=== PATIENT | male | born 1945 | race Caucasian/White ===

== ENCOUNTER 2017-06-13 14:26 | Inpatient (IN) ==
--- NOTE | 2017-06-13 15:07 | Emergency Department Note ---
Disposition Clinical Impression: Bladder outlet obstruction, Bilateral hydronephrosis Acute renal failure Qualifiers: Acute renal failure type: unspecified Qualified Code(s): N17.9 - Acute kidney failure, unspecified Disposition: Admitted As Inpatient Condition: Fair Time of Disposition: 15:23 Male Urogenital HPI - General Chief complaint: ED Urogenital-Male Stated complaint: trouble urinating Time Seen by Provider: 06/13/17 14:50 Source: patient, EMS Limitations: no limitations Nursing Notes Reviewed: Yes Vital Signs Reviewed: Yes - History of Present Illness HPI Narrative: Patient is a 71-year-old male who presents to [facility] ED with a chief complaint of urinary obstruction. [facility]one[facility] and bladder outlet obstruction causing renal failure. Patient has known elevated PSA of 22 and has a scheduled urology appointment on June 18. Patient sent over to be admitted for his renal failure and urology consultation. Patient also accidentally got his Perez catheter stuck on the doorknob and it pulled out Perez causing traumatic damage to the urethra. He has had bloody output and now has decreased urinary output. Pt Subjective Complaint: urinary retention Onset (ago): week(s) Duration: gradually worsening Severity: moderate Improves with: none Worsens with: none Reports: urinary retention, incontinence - Related Data Home Medications Medication Instructions Recorded Confirmed Acetaminophen [Tylenol] 500 mg PO Q6H PRN 06/13/17 06/13/17 Ciprofloxacin [Cipro] 500 mg PO BID 06/13/17 06/13/17 Divalproex (24 HR) [Depakote ER 500 mg PO HS 06/13/17 06/13/17 (24 HR)] Finasteride [Proscar] 5 mg PO DAILY 06/13/17 06/13/17 Metoprolol XL (24 HR) Succ [Toprol 25 mg PO DAILY 06/13/17 06/13/17 XL] Naproxen [Naprosyn] 500 mg PO BID 06/13/17 06/13/17 Ranitidine HCl [Acid Alliance Manager] 150 mg PO BID 06/13/17 06/13/17 Simvastatin [Zocor] 20 mg PO HS 06/13/17 06/13/17 Tamsulosin [Flomax] 0.4 mg PO DAILY 06/13/17 06/13/17 Venlafaxine XR (24 HR) [Effexor XR] 150 mg PO DAILY 06/13/17 06/13/17 Zolpidem [Ambien] 5 mg PO HS PRN 06/13/17 06/13/17 Allergies Allergy/AdvReac Type Severity Reaction Status Date / Time No Known Allergies Allergy Verified 06/13/17 14:34 All systems ED: reviewed and negative except as stated. Past Medical History - Past Medical History Attestation: Yes The following information was validated with the patient. Source: patient Medical history: Reports: COPD, coronary artery disease, GERD, hyperlipidemia, hypertension, other Psychiatric history: Reports: depression - Social History Smoking Status: Never smoker Drug use: Reports: none Physical Exam - General Limitations: no limitations General appearance: alert, in no apparent distress - Head Head exam: normal inspection - Eye Eye exam: Present: normal appearance - ENT ENT exam: normal exam, normal oropharynx, mucous membranes moist, normal external ear exam - Neck Neck exam: Present: normal inspection, full ROM, trachea midline - Chest Chest inspection: Present: normal inspection, symmetric chest wall rise - Respiratory Respiratory exam: Present: normal lung sounds bilaterally - Cardiovascular Cardiovascular exam: Present: regular rate, normal rhythm, normal heart sounds - Abdominal Exam Abdominal Exam: Present: soft, Non-Tender - Male exam: Present: normal inspection - Extremities Exam Extremities exam: Present: normal inspection, full ROM - Neurological Exam Neurological exam: Present: alert - Psychiatric Psychiatric exam: Present: normal affect, normal mood - Skin Skin exam: Present: warm, dry, intact, normal color Course Course Narrative: Patient seen and examined. Urinary retention with possibility of prostate cancer. Has not seen urology. Sent in for renal failure with a creatinine of 2.5 and bilateral severe hydronephrosis. Patient came with a Perez in place which had bloody urine with clotting. Perez was flushed with saline but did not get adequate urine output return. It appears that there are clots stuck in the Perez catheter. We will remove this and place a new one. If we have any trouble getting medicine, we will go ahead and call urology. Lab work and imaging was reviewed [facility] We will hold off on repeating any lab work at this time. - Reevaluation(s) Reevaluation #1: I spoke with urologist Dr. Garvin who will consult on the patient. I spoke with hospitalist Dr. Umanzor who has accepted patient for admission. Time: 15:23 Vital Signs Temperature 98.1 F 06/13/17 14:30 Pulse Rate 57 06/13/17 14:30 Respiratory Rate 18 06/13/17 14:30 Blood Pressure 172/82 06/13/17 14:30 O2 Sat by Pulse Oximetry 100 06/13/17 14:30 Temperature 98.1 F 06/13/17 14:30 Pulse Rate 57 06/13/17 14:30 Respiratory Rate 18 06/13/17 14:30 Blood Pressure 172/82 06/13/17 14:30 O2 Sat by Pulse Oximetry 100 06/13/17 14:30 Oxygen Delivery Oxygen Delivery Room Air Urogenital-Male - Medical Records Medical records reviewed: Yes I reviewed the patient's medical records. - Lab Data Lab results reviewed: Yes I reviewed the patient's lab results. - Radiology Data Radiology results reviewed: Yes I reviewed the patient's radiology results.
--- NOTE | 2017-06-13 16:04 | Emergency Department Note ---
Disposition Clinical Impression: Bladder outlet obstruction, Bilateral hydronephrosis Acute renal failure Qualifiers: Acute renal failure type: unspecified Qualified Code(s): N17.9 - Acute kidney failure, unspecified Disposition: Admitted As Inpatient Condition: Fair General Adult HPI - General Chief complaint: ED Urogenital-Male Stated complaint: trouble urinating Time Seen by Provider: 06/13/17 14:50 Source: patient, EMS Limitations: no limitations - History of Present Illness Pain Scale: 0 - Related Data Home Medications Medication Instructions Recorded Confirmed Acetaminophen [Tylenol] 500 mg PO Q6H PRN 06/13/17 06/13/17 Ciprofloxacin [Cipro] 500 mg PO BID 06/13/17 06/13/17 Divalproex (24 HR) [Depakote ER 500 mg PO HS 06/13/17 06/13/17 (24 HR)] Finasteride [Proscar] 5 mg PO DAILY 06/13/17 06/13/17 Metoprolol XL (24 HR) Succ [Toprol 25 mg PO DAILY 06/13/17 06/13/17 XL] Naproxen [Naprosyn] 500 mg PO BID 06/13/17 06/13/17 Ranitidine HCl [Acid Sludge Filtration Operator] 150 mg PO BID 06/13/17 06/13/17 Simvastatin [Zocor] 20 mg PO HS 06/13/17 06/13/17 Tamsulosin [Flomax] 0.4 mg PO DAILY 06/13/17 06/13/17 Venlafaxine XR (24 HR) [Effexor XR] 150 mg PO DAILY 06/13/17 06/13/17 Zolpidem [Ambien] 5 mg PO HS PRN 06/13/17 06/13/17 Allergies Allergy/AdvReac Type Severity Reaction Status Date / Time No Known Allergies Allergy Verified 06/13/17 14:34 Past Medical History - Past Medical History Medical history: Reports: COPD, coronary artery disease, GERD, hyperlipidemia, hypertension, other Psychiatric history: Reports: depression - Social History Smoking Status: Never smoker Drug use: Reports: none Physical Exam - General Limitations: no limitations General appearance: alert, in no apparent distress Course - Reevaluation(s) Reevaluation #1: I saw the patient with the resident, Dr. mccauley. Patient presented from outside facility after abnormal lab work showed low hemoglobin and elevated renal functions. Patient is having issues with prostate and he has a chronic indwelling Perez that seems to be on pulled out and now is having blood in the urine. We had to replace the Perez with a 3-way catheter and irrigate. We did get clots out. Patient needs to be admitted because of the renal insufficiency that is significant change from previous. He will be admitted to the hospitalist with urology consultation. At this time he is in no distress with normal vital signs and an unremarkable exam except for the presence of the Perez in place with red urine. Time: 16:04 Vital Signs Temperature 98.1 F 06/13/17 14:30 Pulse Rate 57 06/13/17 14:30 Respiratory Rate 18 06/13/17 14:30 Blood Pressure 172/82 06/13/17 14:30 O2 Sat by Pulse Oximetry 100 06/13/17 14:30 Temperature 99.6 F 06/13/17 18:35 Pulse Rate 82 06/13/17 18:35 Respiratory Rate 18 06/13/17 18:35 Blood Pressure 179/88 06/13/17 18:35 O2 Sat by Pulse Oximetry 96 06/13/17 18:35 Oxygen Delivery Oxygen Delivery Room Air Attestation Statement - Attestation Attestation: I, Dr. Rowe, examined this patient [id number] and my medical decision- making was reviewed with the Resident Physician, Dr. mccauley. I agree with the documented findings, disposition and treatment plan as described except to the extent set forth below. Please see my progress note for details.
[2017-06-13] MEDS ORDERED: Naloxone 0.4 MG/ML INJ IVP PRN (17:08)
[2017-06-13] MEDS ORDERED: Acetaminophen 325 MG TABLET PO PRN (17:08)
--- NOTE | 2017-06-13 17:18 | Internal Med History&Physical ---
Date of Encounter: 06/13/17 Time of Encounter: 16:30 Assessment and Plan (1) UTI (urinary tract infection) Current visit: Yes Status: Acute Patient has UTI before admission. On Cipro po at home. Will continue Cipro by mouth and repeat UA and urine culture. Qualifiers: Urinary tract infection type: acute cystitis Hematuria presence: without hematuria Qualified Code(s): N30.00 - Acute cystitis without hematuria (2) BPH (benign prostatic hyperplasia) Current visit: Yes Status: Acute Patient has signs of urinary retention. Keep patient on Perez catheter. Urology consult. Keep home medications for BPH. Qualifiers: Lower urinary tract symptom presence: symptoms present Lower urinary tract symptom detail: urinary obstruction Qualified Code(s): N40.1 - Benign prostatic hyperplasia with lower urinary tract symptoms; N13.8 - Other obstructive and reflux uropathy (3) Depression Current visit: Yes Status: Acute Continue home medications. Patient is stable. Qualifiers: Depression Type: other depression Qualified Code(s): F32.89 - Other specified depressive episodes (4) DVT prophylaxis Current visit: Yes Status: Acute EPCD. Hold anticoagulations because of hematuria (5) Acute renal failure Current visit: Yes Status: Acute Creatinine 2.47. No previous creatinine level available. Possibly due to BPH caused urination obstruction. On Perez catheter already. Will go patient mild hydration, monitor renal function. Qualifiers: Acute renal failure type: unspecified Qualified Code(s): N17.9 - Acute kidney failure, unspecified (6) Bladder outlet obstruction Current visit: Yes Status: Acute Perez catheter placed. Urology consult (7) Bilateral hydronephrosis Current visit: Yes Status: Acute Most likely due to urinary obstruction caused by BPH . Continue Perez catheter. Urology consult. Internal Medicine - H&P: HPI Chief complaint: Cannot urinate Admitted From: Home Plans for Post Hospital Care: Home History of present illness: Mr. Queen is a 71 year old male with history of UTI, BPH, hypertension, depression sent from [place] for urinary retention/obstruction with ARIE. Patient has history of BPH, was on Perez catheter. However, his Perez catheter came out 10 days ago. Patient said he can urinate but stream is slow. Today he went to [facility] for examination. US shows urinary retention and hydronephrosis. Patient was sent to our ER to see a specialist. Urology was consulted by ER physician. A new Perez catheter has been placed. Patient has mild hematuria after the Perez catheter. Patient denies fever, chest pain, shortness of breath , nausea. I have discussed with patient regarding CODE STATUS, he is full code. Past Med Surg Social Fam HX - Past Medical History Medical history: COPD, coronary artery disease, GERD, hyperlipidemia, hypertension, other Psychiatric history: depression - Social History Smoking Status: Never smoker Drug use: none Internal Medicine - H&P: Meds Acetaminophen [Tylenol] 500 mg PO Q6H PRN 06/13/17 [History] Ciprofloxacin [Cipro] 500 mg PO BID 06/13/17 [History] Divalproex (24 HR) [Depakote ER (24 HR)] 500 mg PO HS 06/13/17 [History] Finasteride [Proscar] 5 mg PO DAILY 06/13/17 [History] Metoprolol XL (24 HR) Succ [Toprol XL] 25 mg PO DAILY 06/13/17 [History] Naproxen [Naprosyn] 500 mg PO BID 06/13/17 [History] Ranitidine HCl [Acid Installation And Repair Technician] 150 mg PO BID 06/13/17 [History] Simvastatin [Zocor] 20 mg PO HS 06/13/17 [History] Tamsulosin [Flomax] 0.4 mg PO DAILY 06/13/17 [History] Venlafaxine XR (24 HR) [Effexor XR] 150 mg PO DAILY 06/13/17 [History] Zolpidem [Ambien] 5 mg PO HS PRN 06/13/17 [History] 3 Allergy/AdvReac Type Severity Reaction Status Date / Time No Known Allergies Allergy Verified 06/13/17 14:34 All Systems PM: A 10-system review of systems was performed and is negative for pertinent findings except as documented above in the HPI. - Constitutional Vitals: Temp Pulse Resp BP Pulse Ox 98.1 F 55 18 133/100 100 06/13/17 14:30 06/13/17 16:29 06/13/17 16:48 06/13/17 16:48 06/13/17 16:29 General appearance: Present: A&O X 3, no acute distress, answers questions appropriately - Head Head exam: Present: atraumatic, normocephalic - Eye Eye exam: Present: PERRL, conjuntiva pink, sclera anicteric Pupils: Present: PERRL - Neck Neck exam general surgery: Present: supple, trachea midline. Absent: lymphadenopathy - Respiratory Respiratory exam: Present: CTAB. Absent: accessory muscle use, rales, rhonchi, wheezes - Cardiovascular Cardiovascular exam: Present: RRR, +S1, +S2. Absent: diastolic murmur, gallop, rubs, systolic murmur - GI/Abdominal GI/Abdominal exam: Present: normal bowel sounds, soft, no peritoneal signs. Absent: distended, tenderness Additional comments: Perez catheter in place, with pink color urine (mild hematuria). - Extremities Exam Extremities exam: Present: warm, radial pulses palpable and symmetrical. Absent : calf tenderness, cyanotic, pedal edema - Neurological Exam Neurological exam: Present: CN II-XII intact, oriented X3, no focal deficits. Absent: pronater drift, facial droop, speech deficit - Skin Skin exam: Present: dry, intact Internal Med - H&P Results - Labs Labs: Lab from reviewed: CBC: 5.5/10.8/32.9/130 BMP: 140/5.4/109/31/2.47/91
[2017-06-13 17:35] LABS: Bilirubin,Urine Negative (Negative); Blood,Urine Large (Negative); Clarity,Urine Cloudy (Clear); Color,Urine Red (Yellow); Glucose,Urine (UA) 100 mg/dL (Normal); Ketones,Urine Negative (Negative); Leukocyte Esterase,Urine Small (Negative); Nitrite,Urine Negative (Negative); Protein,Urine >=1000 mg/dL (Neg-Trace); Specific Gravity,Urine 1.022 (1.010-1.025); Urobilinogen,Urine Normal (Normal)
[2017-06-13] MEDS: 0.9 % Sodium Chloride 1,000 ML IVC SCH (18:05)
--- NOTE | 2017-06-13 18:15 | Urology - Consult Note ---
Date of Encounter: 06/13/17 Time of Encounter: 18:13 - Assessment and Plan (1) Hematuria Current Visit: Yes Status: Acute Assessment and plan: 71-year-old man with hematuria after catheter placement. He has a 3-way catheter in place currently. We will continue him on continuous bladder irrigation. His urine did clear on irrigation. No surgical intervention is necessary at this time. I was able to hand irrigate significant amount of clot out of his bladder he was in the emergency department. We will continue to follow along. Qualifiers: Qualified Code(s): R31.0 - Gross hematuria (2) Bladder outlet obstruction Current Visit: Yes Status: Acute Assessment and plan: He has a history of urinary retention and bilateral hydronephrosis. He has an indwelling catheter in place. He has been admitted to the hospital service for close follow-up on his renal function. We will continue his catheter through his hospital stay and upon discharge. We will check labs in the morning. Continue IV fluids. Urology CN:[facility] Consult date: 06/13/17 Reason for consult Urology: Other (hematuria) History of present illness: 71-year-old man was admitted for urinary retention and hematuria. He is a patient of [facility] and developed bilateral hydronephrosis and urinary retention seen on CT scan. He hit a catheter placed. He accidentally dislodged it. The catheter was replaced at the PA but seems like it was replaced somewhat forcefully per his report. He began having hematuria. He was transferred to the [facility]. When I saw him in the emergency department he had a 24 Bengali three-way catheter. His urine was grossly bloody with some clots in the tubing. Prior to this he reported slow stream and significant nocturia. Past Med Surg Social Fam HX - Past Medical History Medical history: COPD, coronary artery disease, GERD, hyperlipidemia, hypertension, other Psychiatric history: depression - Social History Smoking Status: Never smoker Drug use: none Medications and Allergies Acetaminophen [Tylenol] 500 mg PO Q6H PRN 06/13/17 [History] Ciprofloxacin [Cipro] 500 mg PO BID 06/13/17 [History] Divalproex (24 HR) [Depakote ER (24 HR)] 500 mg PO HS 06/13/17 [History] Finasteride [Proscar] 5 mg PO DAILY 06/13/17 [History] Metoprolol XL (24 HR) Succ [Toprol XL] 25 mg PO DAILY 06/13/17 [History] Naproxen [Naprosyn] 500 mg PO BID 06/13/17 [History] Ranitidine HCl [Acid Can Dryer] 150 mg PO BID 06/13/17 [History] Simvastatin [Zocor] 20 mg PO HS 06/13/17 [History] Tamsulosin [Flomax] 0.4 mg PO DAILY 06/13/17 [History] Venlafaxine XR (24 HR) [Effexor XR] 150 mg PO DAILY 06/13/17 [History] Zolpidem [Ambien] 5 mg PO HS PRN 06/13/17 [History] 3 Allergy/AdvReac Type Severity Reaction Status Date / Time No Known Allergies Allergy Verified 06/13/17 14:34 Review of Systems - Constitutional no chills, no fever(s) - EENT Nose, mouth and throat: no dizziness - Cardiovascular no chest pain - Respiratory no dyspnea - Gastrointestinal no nausea, no vomiting - Genitourinary difficulty urinating, hematuria, no flank pain - Musculoskeletal no back pain - Integumentary no erythema, no rash - Neurological no weakness - Psychiatric no suicidal ideation - Hematologic/Lymphatic no easy bleeding - Allergic/Immunologic no wheezing Exam Initial Vital Signs Temp Pulse Resp BP Pulse Ox 98.1 F 57 18 172/82 100 06/13/17 14:30 06/13/17 14:30 06/13/17 14:30 06/13/17 14:30 06/13/17 14:30 - General physical appearance Present: well developed, well nourished, no distress - Eyes Absent: icteric - ENT Present: normal nares - Neck Present: trachea midline - Respiratory Present: normal respiratory effort - Cardiovascular Cardiovascular exam IM: RRR - Abdomen Abdomen: Present: soft - Genitourinary normal penis with no external lesions, other (Perez catheter in place with grossly bloody urine.) Urology Results - Labs Abnormal lab results Ur Specimen Adequacy See below A 06/13/17 16:24 Urine Color Red (Yellow) A 06/13/17 16:24 Urine Clarity Cloudy (Clear) A 06/13/17 16:24 Urine Protein >=1000 mg/dL (Neg-Trace) H 06/13/17 16:24 Urine Glucose (UA) 100 mg/dL (Normal) H 06/13/17 16:24 Urine Blood Large (Negative) H 06/13/17 16:24 Ur Leukocyte Esterase Small (Negative) H 06/13/17 16:24 Ur Culture Indicated? YES (NO) A 06/13/17 16:24 All other labs normal. Consult Discharge Plan - Plan [facility]errals: [facility] [Primary Care Provider] -
[2017-06-13] MEDS: Famotidine 20 MG TABLET PO SCH (20:30)
[2017-06-13] MEDS: Divalproex (24 HR) 500 MG TABLET PO SCH (20:30)
[2017-06-14] MEDS: metroNIDAZOLE 500 MG TABLET PO SCH ×2 (04:17→08:34)
[2017-06-14 06:55] LABS: INR 1.1; Prothrombin Time 12.4 Seconds (9.4-12.1)
[2017-06-14] MEDS: 0.9 % Sodium Chloride 1,000 ML IVC SCH (06:58)
[2017-06-14 07:01] LABS: Calcium 9.4 mg/dL (8.6-10.8); Potassium 4.9 mEq/L (3.5-4.5)
[2017-06-14 07:05] LABS: Basophils % 0.4 %; Eosinophils % 0.5 %; Hematocrit 36.8 % (37.5-50.1); Hemoglobin 11.8 g/dL (12.9-16.9); Immature Granulocytes % 2.6 % (0-4); Lymphocytes # 1.6 K/mcL (0.6-4.6); Lymphocytes % 19.2 %; Mean Corpuscular HGB Conc 32.1 g/dL (31.6-35.5); Mean Corpuscular Hemoglobin 28.8 pg (28.0-33.3); Mean Corpuscular Volume 89.8 fL (83.0-100.0); Mean Platelet Volume 10.7 fL (9.4-12.4); Monocytes # 0.9 K/mcL (0.0-1.3); Monocytes % 10.9 %; Neutrophils # 5.6 K/mcL (1.6-8.9); Platelet Count 141 K/mcL (140-400); Red Cell Distribution Width 14.2 % (11.5-14.5); Segmented Neutrophils % 66.4 %
--- NOTE | 2017-06-14 07:19 | Urology Progress Note ---
Date of Encounter: 06/14/17 Time of Encounter: 07:17 - Assessment and Plan (1) Hematuria Current Visit: Yes Status: Acute Assessment and plan: Improving today. Will ween down CBI. will follow along. H&H is okay. Qualifiers: Qualified Code(s): R31.0 - Gross hematuria (2) Bladder outlet obstruction Current Visit: Yes Status: Acute Assessment and plan: Continue Perez. Progress Note Narrative: Doing well today. Urine is light pink to clear on CBI. Catheter has been okay for him. No fevers. Objective Initial Vital Signs Temp Pulse Resp BP Pulse Ox 98.1 F 57 18 172/82 100 06/13/17 14:30 06/13/17 14:30 06/13/17 14:30 06/13/17 14:30 06/13/17 14:30 - General physical appearance Present: well developed, well nourished, no distress - Respiratory Present: normal respiratory effort - Abdomen Present: soft - Genitourinary Urine Appearance: Present: Hematuria (Light pink on moderate to fast CBI) - Labs 06/14/17 06:10 06/14/17 06:10 Diabetes panel 06/14/17 Range/Units 06:10 Sodium 138 (136-145) mEq/L Potassium 4.9 H (3.5-4.5) mEq/L Chloride 109 (98-109) mEq/L Carbon Dioxide 21 (19-29) mEq/L BUN 25 (8-26) mg/dL Creatinine 2.08 H (0.72-1.25) mg/dL Glucose 114 H (70-99) mg/dL Calcium 9.4 (8.6-10.8) mg/dL Calcium panel 06/14/17 Range/Units 06:10 Calcium 9.4 (8.6-10.8) mg/dL Pituitary panel 06/14/17 Range/Units 06:10 Sodium 138 (136-145) mEq/L Potassium 4.9 H (3.5-4.5) mEq/L Chloride 109 (98-109) mEq/L Carbon Dioxide 21 (19-29) mEq/L BUN 25 (8-26) mg/dL Creatinine 2.08 H (0.72-1.25) mg/dL Glucose 114 H (70-99) mg/dL Calcium 9.4 (8.6-10.8) mg/dL Adrenal panel 06/14/17 Range/Units 06:10 Sodium 138 (136-145) mEq/L Potassium 4.9 H (3.5-4.5) mEq/L Chloride 109 (98-109) mEq/L Carbon Dioxide 21 (19-29) mEq/L BUN 25 (8-26) mg/dL Creatinine 2.08 H (0.72-1.25) mg/dL Glucose 114 H (70-99) mg/dL Calcium 9.4 (8.6-10.8) mg/dL Consult Discharge Plan - Plan Referrals: [facility] [Primary Care Provider] -
[2017-06-14] MEDS: Famotidine 20 MG TABLET PO SCH (08:34)
[2017-06-14] MEDS: Finasteride 5 MG TABLET PO SCH (08:34)
[2017-06-14] MEDS: Metoprolol XL (24 HR) Succ 25 MG TAB.ER.24H PO SCH (08:34)
[2017-06-14] MEDS: Venlafaxine XR (24 HR) 150 MG CAP.ER.24H PO SCH (08:34)
--- NOTE | 2017-06-14 11:12 | Internal Med Progress Note ---
Date of Encounter: 06/14/17 Time of Encounter: 11:05 - Assessment and plan (1) C. difficile diarrhea Current Visit: Yes Status: Acute Assessment and plan: Stool positive for C-diff start Metronidazole 500mg IV q8h reported of having two episodes of diarrhea earlier today, will closely monitor electrolytes and replace as needed (2) UTI (urinary tract infection) Current Visit: Yes Status: Acute Assessment and plan: d/c PO Cipro will start Zosyn IV at this time f/u urine cultures Qualifiers: Urinary tract infection type: acute cystitis Hematuria presence: without hematuria Qualified Code(s): N30.00 - Acute cystitis without hematuria (3) Hematuria Current Visit: Yes Status: Acute Assessment and plan: secondary to trauma urology input appreciated continue CBI support hematuria improving from previous day as per reports Qualifiers: Hematuria type: unspecified type Qualified Code(s): R31.9 - Hematuria, unspecified (4) Bladder outlet obstruction Current Visit: Yes Status: Acute Assessment and plan: urology input appreciated continue finastride, tamsulosin jennings support pt will likely be discharged with jennings catheter (5) BPH (benign prostatic hyperplasia) Current Visit: Yes Status: Chronic Qualifiers: Lower urinary tract symptom presence: symptoms present Lower urinary tract symptom detail: urinary obstruction Qualified Code(s): N40.1 - Benign prostatic hyperplasia with lower urinary tract symptoms; N13.8 - Other obstructive and reflux uropathy (6) Hypertension Current Visit: Yes Status: Acute Assessment and plan: restarted home medications hydralazine 10mg IV q6h prn SBP>150 closely monitor BP Qualifiers: Hypertension type: essential hypertension Qualified Code(s): I10 - Essential (primary) hypertension (7) DVT prophylaxis Current Visit: Yes Status: Acute Assessment and plan: SCD - Subjective Interval history: Pt seen and examined at bedside. Resting in bed and reports of feeling better compared to previous day. reports of diarrhea for weeks and is found to be C- diff positive during this admission. denies any abd pain, nausea, or vomiting. Tolerating diet well. Noted to have low grade fever despite PO abx therapy - Constitutional Vitals: Temp Pulse Resp BP Pulse Ox 99.0 F 95 16 155/83 95 06/14/17 07:28 06/14/17 07:28 06/14/17 07:28 06/14/17 07:28 06/14/17 08:39 General appearance: Present: cooperative, A&O X 3, pleasant, no acute distress, obese, answers questions appropriately - Head Head exam: Present: atraumatic, normocephalic - Eye Eye exam: Present: conjuntiva pink, sclera anicteric - Respiratory Respiratory exam: Present: CTAB. Absent: accessory muscle use, rales, rhonchi, wheezes - Cardiovascular Cardiovascular exam: Present: RRR, +S1, +S2. Absent: diastolic murmur, gallop, rubs, systolic murmur - GI/Abdominal GI/Abdominal exam: Present: normal bowel sounds, soft, no peritoneal signs. Absent: distended, tenderness - Extremities Exam Extremities exam: Present: warm, radial pulses palpable and symmetrical. Absent : calf tenderness, cyanotic, pedal edema - Neurological Exam Neurological exam: Present: alert, oriented X3 - Psychiatric Psychiatric exam: Present: normal affect, normal mood Internal Medicine: Result - Labs CBC & Chem 7: 06/14/17 06:10 06/14/17 06:10 Labs: Short CBC 06/14/17 Range/Units 06:10 WBC 8.4 (4.3-11.1) K/mcL Hgb 11.8 L (12.9-16.9) g/dL Hct 36.8 L (37.5-50.1) % Plt Count 141 (140-400) K/mcL Neutrophils # 5.6 (1.6-8.9) K/mcL BMP 06/14/17 06:10 Sodium 138 Potassium 4.9 H Chloride 109 Carbon Dioxide 21 BUN 25 Creatinine 2.08 H Glucose 114 H Calcium 9.4 Urine 06/13/17 Range/Units 16:24 Urine Color Red A (Yellow) Urine Clarity Cloudy A (Clear) Urine pH 7.0 (5.0-8.0) pH Units Ur Specific [place] 1.022 (1.010-1.025) Urine Protein >=1000 H (Neg-Trace) mg/dL Urine Glucose (UA) 100 H (Normal) mg/dL - ABG Interpretation ABG results: PT/INR, D-dimer PT 12.4 Seconds (9.4-12.1) H 06/14/17 06:10 Consult Discharge Plan - Plan [facility]errals: [facility] [Primary Care Provider] -
[2017-06-14] MEDS: Piperacillin/Tazobactam 3.375 GM in D5% in Water (Mini-Bag+) 100 ML IVPB SCH ×2 (15:05→23:12)
[2017-06-14] MEDS: MetroNIDAZOLE 500 MG/100 ML 500 MG/100 ML BAG IVPB SCH ×2 (17:31→23:12)
[2017-06-14] MEDS: Divalproex (24 HR) 500 MG TABLET PO SCH (23:11)
[2017-06-15] MEDS: Piperacillin/Tazobactam 3.375 GM in D5% in Water (Mini-Bag+) 100 ML IVPB SCH ×3 (05:55→22:39)
[2017-06-15 06:23] LABS: Basophils % 0.3 %; Eosinophils # 0.1 K/mcL (0.0-0.6); Eosinophils % 0.9 %; Hematocrit 34.1 % (37.5-50.1); Hemoglobin 11.3 g/dL (12.9-16.9); Immature Granulocytes % 3.6 % (0-4); Immature Platelets 3.6 % (1.1-6.1); Lymphocytes # 1.9 K/mcL (0.6-4.6); Lymphocytes % 20.1 %; Mean Corpuscular HGB Conc 33.1 g/dL (31.6-35.5); Mean Corpuscular Hemoglobin 29.7 pg (28.0-33.3); Mean Corpuscular Volume 89.7 fL (83.0-100.0); Mean Platelet Volume 10.6 fL (9.4-12.4); Monocytes % 11.2 %; Platelet Count 116 K/mcL (140-400); Red Cell Distribution Width 14.3 % (11.5-14.5); Segmented Neutrophils % 63.9 %
[2017-06-15 06:34] LABS: Magnesium 1.7 mg/dL (1.6-2.6); Phosphorous 3.5 mg/dL (2.3-4.7); Potassium 4.6 mEq/L (3.5-4.5)
--- NOTE | 2017-06-15 07:25 | Urology Progress Note ---
Date of Encounter: 06/15/17 Time of Encounter: 07:23 - Assessment and Plan (1) Hematuria Current Visit: Yes Status: Acute Assessment and plan: 71-year-old man with hematuria. He has not cleared with continuous bladder irrigation over the last day. Therefore, I will add him onto the OR schedule for tomorrow. I will schedule him for a cystoscopy, clot evacuation, fulguration. He was informed of the risks of the surgery which include but are not limited to bleeding, infection, injury to structures, need for further procedures, continued retention, and the risk of anesthesia. He is willing to proceed. If his urine does clear overnight, we can cancel the surgery in the morning. Qualifiers: Hematuria type: unspecified type Qualified Code(s): R31.9 - Hematuria, unspecified (2) Bladder outlet obstruction Current Visit: Yes Status: Acute Assessment and plan: He continues to have chronic renal insufficiency. Creatinine hasn't improved much with the indwelling catheter. I appreciate internal medicine support. We will follow for now. Progress Note Narrative: 71 -year-old man with bladder outlet obstruction and hematuria. He has an indwelling catheter and is on continuous bladder irrigation. His urine remains bloody today. He clears with fast irrigation. He says he is feeling well. Objective Initial Vital Signs Temp Pulse Resp BP Pulse Ox 98.1 F 57 18 172/82 100 06/13/17 14:30 06/13/17 14:30 06/13/17 14:30 06/13/17 14:30 06/13/17 14:30 - General physical appearance Present: well developed, well nourished, no distress - Respiratory Present: normal respiratory effort - Abdomen Present: soft - Genitourinary Urine Appearance: Present: Hematuria (fruit punch color on slow cbi) - Labs 06/15/17 05:58 06/15/17 05:58 Diabetes panel 06/15/17 Range/Units 05:58 Sodium 142 (136-145) mEq/L Potassium 4.6 H (3.5-4.5) mEq/L Chloride 113 H (98-109) mEq/L Carbon Dioxide 23 (19-29) mEq/L BUN 24 (8-26) mg/dL Creatinine 1.99 H (0.72-1.25) mg/dL Glucose 110 H (70-99) mg/dL Calcium 9.0 (8.6-10.8) mg/dL Calcium panel 06/15/17 Range/Units 05:58 Calcium 9.0 (8.6-10.8) mg/dL Phosphorus 3.5 (2.3-4.7) mg/dL Pituitary panel 06/15/17 Range/Units 05:58 Sodium 142 (136-145) mEq/L Potassium 4.6 H (3.5-4.5) mEq/L Chloride 113 H (98-109) mEq/L Carbon Dioxide 23 (19-29) mEq/L BUN 24 (8-26) mg/dL Creatinine 1.99 H (0.72-1.25) mg/dL Glucose 110 H (70-99) mg/dL Calcium 9.0 (8.6-10.8) mg/dL Adrenal panel 06/15/17 Range/Units 05:58 Sodium 142 (136-145) mEq/L Potassium 4.6 H (3.5-4.5) mEq/L Chloride 113 H (98-109) mEq/L Carbon Dioxide 23 (19-29) mEq/L BUN 24 (8-26) mg/dL Creatinine 1.99 H (0.72-1.25) mg/dL Glucose 110 H (70-99) mg/dL Calcium 9.0 (8.6-10.8) mg/dL Consult Discharge Plan - Plan [facility]errals: [facility] [Primary Care Provider] -
[2017-06-15] MEDS: Finasteride 5 MG TABLET PO SCH (08:46)
[2017-06-15] MEDS: Venlafaxine XR (24 HR) 150 MG CAP.ER.24H PO SCH (08:46)
[2017-06-15] MEDS: Metoprolol XL (24 HR) Succ 25 MG TAB.ER.24H PO SCH (08:46)
[2017-06-15] MEDS: 0.9 % Sodium Chloride 1,000 ML IVC SCH (08:46)
[2017-06-15] MEDS: MetroNIDAZOLE 500 MG/100 ML 500 MG/100 ML BAG IVPB SCH ×3 (08:46→22:51)
[2017-06-15] MEDS ORDERED: Famotidine 20 MG TABLET PO SCH (09:00)
--- NOTE | 2017-06-15 11:29 | Internal Med Progress Note ---
Date of Encounter: 06/15/17 Time of Encounter: 11:27 - Assessment and plan (1) C. difficile diarrhea Current Visit: Yes Status: Acute Assessment and plan: Stool positive for C-diff continue Metronidazole 500mg IV q8h (2) UTI (urinary tract infection) Current Visit: Yes Status: Acute Assessment and plan: continue Zosyn IV at this time urine cultures showed No growth however they were obtained after patient had already been receiving abx will treat for total of 10 days Qualifiers: Urinary tract infection type: acute cystitis Hematuria presence: without hematuria Qualified Code(s): N30.00 - Acute cystitis without hematuria (3) Hematuria Current Visit: Yes Status: Acute Assessment and plan: secondary to trauma urology input appreciated continue CBI support Tentative cystoscopy in am if hematuria persists (06/16/17) Qualifiers: Hematuria type: unspecified type Qualified Code(s): R31.9 - Hematuria, unspecified (4) Bladder outlet obstruction Current Visit: Yes Status: Acute Assessment and plan: urology input appreciated continue finastride, tamsulosin jennings support pt will likely be discharged with jennings catheter (5) BPH (benign prostatic hyperplasia) Current Visit: Yes Status: Chronic Qualifiers: Lower urinary tract symptom presence: symptoms present Lower urinary tract symptom detail: urinary obstruction Qualified Code(s): N40.1 - Benign prostatic hyperplasia with lower urinary tract symptoms; N13.8 - Other obstructive and reflux uropathy (6) Hypertension Current Visit: Yes Status: Acute Assessment and plan: continue home medications hydralazine 10mg IV q6h prn SBP>150 closely monitor BP Qualifiers: Hypertension type: essential hypertension Qualified Code(s): I10 - Essential (primary) hypertension (7) DVT prophylaxis Current Visit: Yes Status: Acute Assessment and plan: SCD (8) Acute kidney injury Current Visit: Yes Status: Acute Assessment and plan: Likely secondary to bladder outlet obstruction renal function improving will continue to closely monitor avoid nephrotoxic agents closely monitor and control BP - Subjective Interval history: Pt seen and examined at bedside. Resting in bed and reports of feeling better compared to the previous day. Denies any abd pain, n/v, or diarrhea. No fever, or chills reported. Pt is noted to have persistent hematuria with blood clots. Urology on board and tentative plan for cystoscopy in am if hematuria persists. No overnight issues reported. - Constitutional Vitals: Temp Pulse Resp BP Pulse Ox 98.7 F 92 15 157/76 96 06/15/17 08:15 06/15/17 08:15 06/15/17 08:15 06/15/17 08:15 06/15/17 08:46 General appearance: Present: cooperative, A&O X 3, pleasant, no acute distress, obese, answers questions appropriately - Head Head exam: Present: atraumatic, normocephalic - Eye Eye exam: Present: conjuntiva pink, sclera anicteric - Respiratory Respiratory exam: Absent: respiratory distress, wheezes - Cardiovascular Cardiovascular exam: Present: RRR, +S1, +S2. Absent: diastolic murmur, gallop, rubs, systolic murmur - GI/Abdominal GI/Abdominal exam: Present: normal bowel sounds, soft, no peritoneal signs. Absent: distended, tenderness - Extremities Exam Extremities exam: Present: warm, radial pulses palpable and symmetrical. Absent : calf tenderness - Neurological Exam Neurological exam: Present: alert, oriented X3 - Psychiatric Psychiatric exam: Present: normal affect, normal mood Internal Medicine: Result - Labs CBC & Chem 7: 06/15/17 05:58 06/15/17 05:58 Labs: Short CBC 06/15/17 Range/Units 05:58 WBC 9.3 (4.3-11.1) K/mcL Hgb 11.3 L (12.9-16.9) g/dL Hct 34.1 L (37.5-50.1) % Plt Count 116 L (140-400) K/mcL Neutrophils # 6.0 (1.6-8.9) K/mcL BMP 06/15/17 05:58 Sodium 142 Potassium 4.6 H Chloride 113 H Carbon Dioxide 23 BUN 24 Creatinine 1.99 H Glucose 110 H Calcium 9.0 - ABG Interpretation ABG results: PT/INR, D-dimer PT 12.4 Seconds (9.4-12.1) H 06/14/17 06:10 Consult Discharge Plan - Plan [facility]errals: [facility] [Primary Care Provider] -
[2017-06-15] MEDS: Divalproex (24 HR) 500 MG TABLET PO SCH (22:39)
[2017-06-16] MEDS: 0.9 % Sodium Chloride 1,000 ML IVC SCH ×2 (01:50→21:27)
[2017-06-16] MEDS: Piperacillin/Tazobactam 3.375 GM in D5% in Water (Mini-Bag+) 100 ML IVPB SCH ×3 (06:01→21:15)
[2017-06-16] MEDS ORDERED: *HR* Propofol 200 MG/20 ML VIAL IVP ONE (07:19)
[2017-06-16] MEDS ORDERED: *HR* FentaNYL (PF) 100 MCG/2 ML VIAL ONE (07:19)
[2017-06-16] MEDS ORDERED: Lidocaine -MPF 2% 2 ML VIAL ONE (07:19)
[2017-06-16] MEDS ORDERED: *HR* Phenylephrine 10 MG/ML VIAL ONE (07:20)
[2017-06-16] MEDS ORDERED: *HR* Succinylcholine 200 MG/10 ML VIAL IVP ONE (07:20)
--- NOTE | 2017-06-16 07:26 | Urology Progress Note ---
Date of Encounter: 06/16/17 Time of Encounter: 07:24 - Assessment and Plan (1) Hematuria Current Visit: Yes Status: Acute Assessment and plan: 71 year old man with gross hematuria. 1. Plan for cystoscopy, clot evacuation, fulguration, possible transurethral resection of prostate, possible transurethral resection of bladder tumor. All risks were informed. He is willing to proceed. Qualifiers: Hematuria type: unspecified type Qualified Code(s): R31.9 - Hematuria, unspecified (2) Bladder outlet obstruction Current Visit: Yes Status: Acute Progress Note Narrative: He is still having some bleeding overnight. We will plan on a cystoscopy, fulguration today. Objective Initial Vital Signs Temp Pulse Resp BP Pulse Ox 98.1 F 57 18 172/82 100 06/13/17 14:30 06/13/17 14:30 06/13/17 14:30 06/13/17 14:30 06/13/17 14:30 - General physical appearance Present: well developed, well nourished, no distress - Respiratory Present: normal respiratory effort - Abdomen Present: soft - Genitourinary Urine Appearance: Present: Hematuria - Labs 06/15/17 05:58 06/15/17 05:58 Consult Discharge Plan - Plan Referrals: [facility] [Primary Care Provider] -
[2017-06-16] MEDS ORDERED: Ringers Solution, Lactated 1,000 ML ONE (07:29)
[2017-06-16] MEDS ORDERED: Ringers Solution, Lactated 1,000 ML IVC SCH (07:29)
[2017-06-16 07:41] LABS: Basophils # 0.1 K/mcL (0.0-0.2); Basophils % 0.6 %; Eosinophils # 0.1 K/mcL (0.0-0.6); Eosinophils % 1.6 %; Hemoglobin 10.4 g/dL (12.9-16.9); Immature Granulocytes % 3.2 % (0-4); Lymphocytes # 2.1 K/mcL (0.6-4.6); Lymphocytes % 25.8 %; Mean Corpuscular HGB Conc 31.5 g/dL (31.6-35.5); Mean Corpuscular Hemoglobin 28.9 pg (28.0-33.3); Mean Corpuscular Volume 91.7 fL (83.0-100.0); Mean Platelet Volume 10.9 fL (9.4-12.4); Monocytes # 1.1 K/mcL (0.0-1.3); Monocytes % 13.4 %; Platelet Count 111 K/mcL (140-400); Red Cell Distribution Width 14.4 % (11.5-14.5); Segmented Neutrophils % 55.4 %
[2017-06-16 07:42] LABS: Neutrophils # 4.5 K/mcL (1.6-8.9)
[2017-06-16 07:50] LABS: Calcium 8.5 mg/dL (8.6-10.8); Magnesium 1.7 mg/dL (1.6-2.6)
--- NOTE | 2017-06-16 07:50 | Anesthesia Evaluation PreOp ---
Date of Encounter: 06/16/17 Time of Encounter: 07:47 - Past History Planned Operation: cystoscopy Cardiac History: HTN, Hyperlipidemia Pulmonary History: Denies Any Significant HX BAG PATCHER History: Denies Any Significant HX Other Medical History: Renal (acute renal injury, gio hydronephrosis), Diabetes Type II (?), Other (BPH) Anesthesia History: No Prior Anesthetic Complications, Past Anesthesia (dental procedure) Drug use: none Medications and Allergies Acetaminophen [Tylenol] 500 mg PO Q6H PRN 06/13/17 [History] Ciprofloxacin [Cipro] 500 mg PO BID 06/13/17 [History] Divalproex (24 HR) [Depakote ER (24 HR)] 500 mg PO HS 06/13/17 [History] Finasteride [Proscar] 5 mg PO DAILY 06/13/17 [History] Metoprolol XL (24 HR) Succ [Toprol XL] 25 mg PO DAILY 06/13/17 [History] Naproxen [Naprosyn] 500 mg PO BID 06/13/17 [History] Ranitidine HCl [Acid Handbag Finisher] 150 mg PO BID 06/13/17 [History] Simvastatin [Zocor] 20 mg PO HS 06/13/17 [History] Tamsulosin [Flomax] 0.4 mg PO DAILY 06/13/17 [History] Venlafaxine XR (24 HR) [Effexor XR] 150 mg PO DAILY 06/13/17 [History] Zolpidem [Ambien] 5 mg PO HS PRN 06/13/17 [History] 3 Allergy/AdvReac Type Severity Reaction Status Date / Time No Known Allergies Allergy Verified 06/13/17 14:34 - Meds/Allergy Pre-op Review Medications Reviewed: Yes Allergies Reviewed: Yes Beta Blockers on Current Med List: Yes If Beta Blockers taken, Date/Time (Last Dose taken): 06-15-17 8:46 metoprolol xl Anesthesia Results - Labs 06/16/17 07:01 06/15/17 05:58 Anesthesia Exam Last Vital Signs Temp 97.8 F 06/16/17 00:26 Pulse 95 06/16/17 00:26 Resp 18 06/16/17 00:26 BP 158/73 06/16/17 05:14 Pulse Ox 95 06/16/17 00:26 Weight: 96 kg NPO (# of Hours): >> 8 hrs - HEENT Pupil (Motor): Pupils equal, EOMI Mallampati: II Teeth: Edentulous Oral Opening: Greater than 3 - BAG PATCHER LOC: Oriented BAG PATCHER Motor: Normal RUE, Normal LUE, Normal RLE, Normal LLE, Normal Face - Cardiac Rhythm: Regular - Pulmonary Breath Sounds: bilateral Clear Respiratory Effort: Symmetrical Anesthesia Assess/Plan ASA Score: 3 Modified [place] Scale for Level of Consciousness: Cooperative, oriented, and tranquil Anesthetic Plan: General Monitoring Plan: Standard Monitors Recovery Plan: PACU
[2017-06-16] MEDS ORDERED: MetroNIDAZOLE 500 MG/100 ML 500 MG/100 ML BAG IVPB ONE (07:55)
[2017-06-16] MEDS: MetroNIDAZOLE 500 MG/100 ML 500 MG/100 ML BAG IVPB SCH ×3 (08:00→23:23)
[2017-06-16] MEDS ORDERED: Dexamethasone 4 MG/ML VIAL ONE (08:13)
[2017-06-16] MEDS ORDERED: Ondansetron 4 MG/2 ML VIAL ONE (08:13)
[2017-06-16 08:20] LABS: Platelet Estimate Slight Decrease (Normal)
[2017-06-16] MEDS ORDERED: *HR* Labetalol 20 MG/4 ML SYRINGE IVP PRN (08:23)
[2017-06-16] MEDS ORDERED: *HR* HYDROmorphone (PF) 1 MG/ML SYRINGE IVP PRN (08:23)
--- NOTE | 2017-06-16 08:51 | Operative Note ---
Date of procedure: 06/16/17 Pre-op diagnosis: Hematuria Post-op diagnosis: same Procedure: Cystoscopy, clot evacuation, fulguration Implants: [address] Complications: none Anesthesia: TICOA Surgeon: Luther Garvin Estimated blood loss (cc): 5 Specimen: none Condition: stable Disposition: PACU Procedure in Detail: Indications: Mr. Queen is a 71-year-old gentleman with a history of hematuria. He was in urinay retention and had a catheter placed. He has had persistent hematuria despite continuous bladder irrigation. He elected to undergo cystoscopy, clot evacuation, and fulguration. He is aware of the risks of the procedure including but not limited to bleeding, infection, injury to other structures, need for further procedures, bladder perforation, and the risk of anesthesia. He is willing to proceed. Procedure: After informed consent was obtained the patient was brought back to the operating room and placed in the supine position. A timeout was performed. Gen. anesthesia was administered and an endotrachealtube was placed. He was then placed in lithotomy position. His genitalia were prepped and draped in the usual sterile fashion. Using the resector sheath and the visual obturator cystoscopy was performed. The prostate was very large and friable. There was large lateral lobe hyperplasia. The bladder neck was friable. Upon entering the bladder there was some clot in the bladder. The urothelium was inflamed and indurated. No distinct bleeding was noted, but the bladder was quite friable. The ureteral orifices were edematous. There was no distinct bladder tumor. The clot was irrigated out. The Daugherty element was then inserted. I then cauterized the bladder neck and the trigone. I cauterized the prostate. As there was just a general ooze of blood from the prostate, I elected to finish the case and place a catheter. I placed a 24 Algerian three-way catheter. d30 mL of sterile water was instilled into the balloon. The catheter was irrigated and remained clear. Continuous bladder irrigation was then started. The patient was then awakened from general anesthesia and brought to the recovery room in good condition. All sponge, needle, and instrument counts were correct.
--- NOTE | 2017-06-16 09:16 | Anesthesia Evaluation Post Op ---
Date of Encounter: 06/16/17 Time of Encounter: 09:15 - Vital Signs Vital Signs: Last Vital Signs Temp 97.7 F 06/16/17 08:50 Pulse 76 06/16/17 09:10 Resp 16 06/16/17 09:10 BP 157/77 06/16/17 09:10 Pulse Ox 96 06/16/17 09:10 - Lungs Lungs: Clear Ascult./Percussion - Airway Airway: Non-obstructed - Cardiovascular Regular Rate - Mental Status Mental Status: Alert & Oriented, Answers Appropriately - Pain Pain Scale: 2 - Nausea Vomiting Nausea Vomiting: Not Present - Hydration Hydration: Ice chips, Perez catheter - Discharge PostOp Status: Transfer Patient to floor
--- NOTE | 2017-06-16 09:33 | Internal Med Progress Note ---
Date of Encounter: 06/16/17 Time of Encounter: 10:44 - Assessment and plan (1) C. difficile diarrhea Current Visit: Yes Status: Acute Assessment and plan: Stool positive for C-diff continue Metronidazole 500mg IV q8h (2) UTI (urinary tract infection) Current Visit: Yes Status: Acute Assessment and plan: continue Zosyn IV at this time urine cultures showed No growth however they were obtained after patient had already been receiving abx will treat for total of 10 days Qualifiers: Urinary tract infection type: acute cystitis Hematuria presence: without hematuria Qualified Code(s): N30.00 - Acute cystitis without hematuria (3) Hematuria Current Visit: Yes Status: Acute Assessment and plan: secondary to trauma urology input appreciated continue CBI support s/p cystoscopy will continue post-op care as per urology Qualifiers: Hematuria type: unspecified type Qualified Code(s): R31.9 - Hematuria, unspecified (4) Bladder outlet obstruction Current Visit: Yes Status: Acute Assessment and plan: urology input appreciated continue finastride, tamsulosin jennings support pt will likely be discharged with jennings catheter (5) BPH (benign prostatic hyperplasia) Current Visit: Yes Status: Chronic Qualifiers: Lower urinary tract symptom presence: symptoms present Lower urinary tract symptom detail: urinary obstruction Qualified Code(s): N40.1 - Benign prostatic hyperplasia with lower urinary tract symptoms; N13.8 - Other obstructive and reflux uropathy (6) Hypertension Current Visit: Yes Status: Acute Assessment and plan: continue home medications hydralazine 10mg IV q6h prn SBP>150 closely monitor BP Qualifiers: Hypertension type: essential hypertension Qualified Code(s): I10 - Essential (primary) hypertension (7) DVT prophylaxis Current Visit: Yes Status: Acute Assessment and plan: SCD (8) Acute kidney injury Current Visit: Yes Status: Acute Assessment and plan: Likely secondary to bladder outlet obstruction unclear of patient's baseline renal function will continue to closely monitor avoid nephrotoxic agents closely monitor and control BP - Subjective Interval history: Pt seen and examined at bedside. Resting in bed and reports of feeling better at this time. Denies any discomfort. No overnight issues reported. s/p Cystoscopy, clot evacuation (06/16/17) - Constitutional Vitals: Temp Pulse Resp BP Pulse Ox 97.6 F 73 12 160/86 98 06/16/17 09:20 08/20/17 09:20 06/16/17 09:20 06/16/17 09:20 06/16/17 09:20 General appearance: Present: cooperative, A&O X 3, pleasant, no acute distress, obese, answers questions appropriately - Head Head exam: Present: atraumatic, normocephalic - Eye Eye exam: Present: conjuntiva pink, sclera anicteric - Respiratory Respiratory exam: Present: CTAB. Absent: accessory muscle use, rales, rhonchi, wheezes - Cardiovascular Cardiovascular exam: Present: RRR, +S1, +S2. Absent: diastolic murmur, gallop, rubs, systolic murmur - GI/Abdominal GI/Abdominal exam: Present: normal bowel sounds, soft, no peritoneal signs. Absent: distended, tenderness - Extremities Exam Extremities exam: Present: warm, radial pulses palpable and symmetrical. Absent : calf tenderness - Neurological Exam Neurological exam: Present: alert, oriented X3 - Psychiatric Psychiatric exam: Present: normal affect, normal mood Internal Medicine: Result - Labs CBC & Chem 7: 06/16/17 07:01 06/16/17 07:01 Labs: Short CBC 06/16/17 Range/Units 07:01 WBC 8.2 (4.3-11.1) K/mcL Hgb 10.4 L (12.9-16.9) g/dL Hct 33.0 L (37.5-50.1) % Plt Count 111 L (140-400) K/mcL Neutrophils # 4.5 (1.6-8.9) K/mcL BMP 06/16/17 07:01 Sodium 145 Potassium 4.0 Chloride 115 H Carbon Dioxide 23 BUN 24 Creatinine 2.05 H Glucose 97 Calcium 8.5 L - ABG Interpretation ABG results: PT/INR, D-dimer PT 12.4 Seconds (9.4-12.1) H 06/14/17 06:10 Consult Discharge Plan - Plan [facility]errals: [facility] [Primary Care Provider] -
[2017-06-16] MEDS: Divalproex (24 HR) 500 MG TABLET PO SCH (21:15)
[2017-06-17] MEDS: Piperacillin/Tazobactam 3.375 GM in D5% in Water (Mini-Bag+) 100 ML IVPB SCH ×3 (05:34→21:07)
[2017-06-17 05:54] LABS: Basophils % 0.4 %; Eosinophils # 0.1 K/mcL (0.0-0.6); Eosinophils % 0.8 %; Hemoglobin 9.5 g/dL (12.9-16.9); Immature Granulocytes % 3.3 % (0-4); Lymphocytes # 1.9 K/mcL (0.6-4.6); Lymphocytes % 22.2 %; Mean Corpuscular HGB Conc 31.7 g/dL (31.6-35.5); Mean Corpuscular Hemoglobin 29.2 pg (28.0-33.3); Mean Corpuscular Volume 92.3 fL (83.0-100.0); Mean Platelet Volume 11.1 fL (9.4-12.4); Monocytes # 0.7 K/mcL (0.0-1.3); Monocytes % 8.6 %; Neutrophils # 5.5 K/mcL (1.6-8.9); Platelet Count 106 K/mcL (140-400); Red Blood Count 3.25 M/mcL (4.19-5.50); Red Cell Distribution Width 14.4 % (11.5-14.5); Segmented Neutrophils % 64.7 %
[2017-06-17 06:05] LABS: Calcium 8.1 mg/dL (8.6-10.8); Magnesium 1.9 mg/dL (1.6-2.6); Phosphorous 3.9 mg/dL (2.3-4.7); Potassium 4.7 mEq/L (3.5-4.5)
[2017-06-17] MEDS: 0.9 % Sodium Chloride 1,000 ML IVC SCH ×2 (07:27→21:06)
[2017-06-17] MEDS: MetroNIDAZOLE 500 MG/100 ML 500 MG/100 ML BAG IVPB SCH ×2 (07:29→15:46)
[2017-06-17] MEDS: Venlafaxine XR (24 HR) 150 MG CAP.ER.24H PO SCH (07:29)
[2017-06-17] MEDS: Famotidine 20 MG TABLET PO SCH (07:30)
[2017-06-17] MEDS: Metoprolol XL (24 HR) Succ 25 MG TAB.ER.24H PO SCH (07:30)
[2017-06-17] MEDS: Finasteride 5 MG TABLET PO SCH (07:30)
--- NOTE | 2017-06-17 07:45 | Urology Progress Note ---
Date of Encounter: 06/17/17 Time of Encounter: 07:44 - Assessment and Plan (1) Hematuria Current Visit: Yes Status: Acute Assessment and plan: 71-year-old man status post cystoscopy, clot evacuation, fulguration. Urine is clearing today. I will stop the CBI. The nurses were instructed to restart it if necessary. Urology will continue to follow along. He had a slight drop in his hemoglobin, but I think the bleeding is resolving. Qualifiers: Hematuria type: unspecified type Qualified Code(s): R31.9 - Hematuria, unspecified (2) Bladder outlet obstruction Current Visit: Yes Status: Acute Progress Note Narrative: 71-year-old man status post cystoscopy, clot evacuation, and fulguration. Postoperative day #1. He has been on slow CBI and his urine is clear to light peach color. Pain is well-controlled. Objective Initial Vital Signs Temp Pulse Resp BP Pulse Ox 98.1 F 57 18 172/82 100 06/13/17 14:30 06/13/17 14:30 06/13/17 14:30 06/13/17 14:30 06/13/17 14:30 - General physical appearance Present: well developed, well nourished, no distress - Respiratory Present: normal respiratory effort - Genitourinary Urine Appearance: Present: Clear (Clear on slow CBI) - Labs 06/17/17 04:57 06/17/17 04:57 Diabetes panel 06/16/17 06/17/17 Range/Units 07:01 04:57 Sodium 145 143 (136-145) mEq/L Potassium 4.0 4.7 H (3.5-4.5) mEq/L Chloride 115 H 115 H (98-109) mEq/L Carbon Dioxide 23 21 (19-29) mEq/L BUN 24 30 H (8-26) mg/dL Creatinine 2.05 H 2.06 H (0.72-1.25) mg/dL Glucose 97 104 H (70-99) mg/dL Calcium 8.5 L 8.1 L (8.6-10.8) mg/dL Calcium panel 06/16/17 06/17/17 Range/Units 07:01 04:57 Calcium 8.5 L 8.1 L (8.6-10.8) mg/dL Phosphorus 4.0 3.9 (2.3-4.7) mg/dL Pituitary panel 06/16/17 06/17/17 Range/Units 07:01 04:57 Sodium 145 143 (136-145) mEq/L Potassium 4.0 4.7 H (3.5-4.5) mEq/L Chloride 115 H 115 H (98-109) mEq/L Carbon Dioxide 23 21 (19-29) mEq/L BUN 24 30 H (8-26) mg/dL Creatinine 2.05 H 2.06 H (0.72-1.25) mg/dL Glucose 97 104 H (70-99) mg/dL Calcium 8.5 L 8.1 L (8.6-10.8) mg/dL Adrenal panel 06/16/17 06/17/17 Range/Units 07:01 04:57 Sodium 145 143 (136-145) mEq/L Potassium 4.0 4.7 H (3.5-4.5) mEq/L Chloride 115 H 115 H (98-109) mEq/L Carbon Dioxide 23 21 (19-29) mEq/L BUN 24 30 H (8-26) mg/dL Creatinine 2.05 H 2.06 H (0.72-1.25) mg/dL Glucose 97 104 H (70-99) mg/dL Calcium 8.5 L 8.1 L (8.6-10.8) mg/dL - VTE Documentation of Mechanical Device: Intermittent pneumatic compression device Consult Discharge Plan - Plan Referrals: [facility] [Primary Care Provider] -
--- NOTE | 2017-06-17 10:10 | Internal Med Progress Note ---
Date of Encounter: 06/17/17 Time of Encounter: 10:08 - Assessment and plan (1) C. difficile diarrhea Current Visit: Yes Status: Acute Assessment and plan: Stool positive for C-diff continue Metronidazole 500mg IV q8h (Day 314) (2) UTI (urinary tract infection) Current Visit: Yes Status: Acute Assessment and plan: continue Zosyn IV at this time urine cultures showed No growth however they were obtained after patient had already been receiving abx will treat for total of 10 days Qualifiers: Urinary tract infection type: acute cystitis Hematuria presence: without hematuria Qualified Code(s): N30.00 - Acute cystitis without hematuria (3) Hematuria Current Visit: Yes Status: Acute Assessment and plan: secondary to trauma urology input appreciated s/p cystoscopy will continue post-op care as per urology H&H low but acceptable will closely monitor H&H and transfuse as needed Qualifiers: Hematuria type: unspecified type Qualified Code(s): R31.9 - Hematuria, unspecified (4) Bladder outlet obstruction Current Visit: Yes Status: Acute Assessment and plan: urology input appreciated continue finastride, tamsulosin jennings support pt will likely be discharged with jennings catheter (5) BPH (benign prostatic hyperplasia) Current Visit: Yes Status: Chronic Qualifiers: Lower urinary tract symptom presence: symptoms present Lower urinary tract symptom detail: urinary obstruction Qualified Code(s): N40.1 - Benign prostatic hyperplasia with lower urinary tract symptoms; N13.8 - Other obstructive and reflux uropathy (6) Hypertension Current Visit: Yes Status: Acute Assessment and plan: continue home medications hydralazine 10mg IV q6h prn SBP>150 closely monitor BP Qualifiers: Hypertension type: essential hypertension Qualified Code(s): I10 - Essential (primary) hypertension (7) DVT prophylaxis Current Visit: Yes Status: Acute Assessment and plan: SCD (8) Acute kidney injury Current Visit: Yes Status: Acute Assessment and plan: Likely secondary to bladder outlet obstruction unclear of patient's baseline renal function will continue to closely monitor avoid nephrotoxic agents closely monitor and control BP - Subjective Interval history: Pt seen and examined at bedside. Resting in bed and reports of feeling better at this time. Denies any discomfort. No overnight issues reported. s/p Cystoscopy, clot evacuation (06/16/17) Urology input appreciated. pt's hematuria improving due to which CBI was stopped earlier this morning. During my evaluation, patient is noted to have persistent hematuria after his CBI has been stopped. - Constitutional Vitals: Temp Pulse Resp BP Pulse Ox 97.3 F L 81 16 160/90 96 06/17/17 07:43 06/17/17 07:43 06/17/17 07:43 06/17/17 07:43 06/17/17 07:43 General appearance: Present: cooperative, A&O X 3, pleasant, no acute distress, obese, answers questions appropriately - Head Head exam: Present: atraumatic, normocephalic - Eye Eye exam: Present: conjuntiva pink, sclera anicteric - Respiratory Respiratory exam: Present: CTAB. Absent: accessory muscle use, rales, rhonchi, wheezes - Cardiovascular Cardiovascular exam: Present: RRR, +S1, +S2. Absent: diastolic murmur, gallop, rubs, systolic murmur - GI/Abdominal GI/Abdominal exam: Present: normal bowel sounds, soft, no peritoneal signs. Absent: distended, tenderness - Extremities Exam Extremities exam: Present: warm, radial pulses palpable and symmetrical. Absent : calf tenderness - Neurological Exam Neurological exam: Present: alert, oriented X3 - Psychiatric Psychiatric exam: Present: normal affect, normal mood Internal Medicine: Result - Labs CBC & Chem 7: 06/17/17 04:57 06/17/17 04:57 Labs: Short CBC 06/17/17 Range/Units 04:57 WBC 8.5 (4.3-11.1) K/mcL Hgb 9.5 L (12.9-16.9) g/dL Hct 30.0 L (37.5-50.1) % Plt Count 106 L (140-400) K/mcL Neutrophils # 5.5 (1.6-8.9) K/mcL BMP 06/17/17 04:57 Sodium 143 Potassium 4.7 H Chloride 115 H Carbon Dioxide 21 BUN 30 H Creatinine 2.06 H Glucose 104 H Calcium 8.1 L - ABG Interpretation ABG results: PT/INR, D-dimer PT 12.4 Seconds (9.4-12.1) H 06/14/17 06:10 - VTE Documentation of Mechanical Device: Intermittent pneumatic compression device Consult Discharge Plan - Plan [facility]errals: [facility] [Primary Care Provider] -
[2017-06-17] MEDS: Acetaminophen 325 MG TABLET PO PRN (15:45)
[2017-06-17] MEDS: Divalproex (24 HR) 500 MG TABLET PO SCH (21:08)
[2017-06-18] MEDS: 0.9 % Sodium Chloride 1,000 ML IVC SCH ×4 (01:08→11:56)
[2017-06-18] MEDS: MetroNIDAZOLE 500 MG/100 ML 500 MG/100 ML BAG IVPB SCH ×2 (01:17→11:05)
[2017-06-18] MEDS: Piperacillin/Tazobactam 3.375 GM in D5% in Water (Mini-Bag+) 100 ML IVPB SCH (04:41)
[2017-06-18 06:23] LABS: Basophils # 0.1 K/mcL (0.0-0.2); Basophils % 0.9 %; Eosinophils # 0.2 K/mcL (0.0-0.6); Eosinophils % 2.7 %; Hematocrit 33.8 % (37.5-50.1); Hemoglobin 10.7 g/dL (12.9-16.9); Lymphocytes # 1.7 K/mcL (0.6-4.6); Lymphocytes % 25.5 %; Mean Corpuscular HGB Conc 31.7 g/dL (31.6-35.5); Mean Corpuscular Hemoglobin 29.1 pg (28.0-33.3); Mean Corpuscular Volume 91.8 fL (83.0-100.0); Monocytes % 12.8 %; Neutrophils # 3.5 K/mcL (1.6-8.9); Platelet Count 121 K/mcL (140-400); Red Blood Count 3.68 M/mcL (4.19-5.50); Red Cell Distribution Width 14.4 % (11.5-14.5); Segmented Neutrophils % 53.1 %
[2017-06-18 06:28] LABS: Monocytes # 0.8 K/mcL (0.0-1.3)
[2017-06-18 06:37] LABS: Calcium 8.9 mg/dL (8.6-10.8); Phosphorous 3.6 mg/dL (2.3-4.7); Potassium 4.3 mEq/L (3.5-4.5)
[2017-06-18 06:53] LABS: Platelet Estimate Slight Decrease (Normal)
--- NOTE | 2017-06-18 07:23 | Urology Progress Note ---
Date of Encounter: 06/18/17 Time of Encounter: 07:22 - Assessment and Plan (1) Hematuria Current Visit: Yes Status: Acute Assessment and plan: Hematuria has resolved. We will plug the inflow port of the catheter. I recommend he be discharged home with the catheter given his urinary retention. Qualifiers: Hematuria type: unspecified type Qualified Code(s): R31.9 - Hematuria, unspecified (2) Bladder outlet obstruction Current Visit: Yes Status: Acute Assessment and plan: His renal function has remained stable despite having adequate drainage. Urine output has been good. Appreciate internal medicine support. He can follow-up with me in 1 week in the clinic for a voiding trial. Progress Note Narrative: 71-year-old man with gross hematuria status post cystoscopy and fulguration. He is postoperative day #2. He is doing well. Urine has been clear. Objective Initial Vital Signs Temp Pulse Resp BP Pulse Ox 98.1 F 57 18 172/82 100 06/13/17 14:30 06/13/17 14:30 06/13/17 14:30 06/13/17 14:30 06/13/17 14:30 - General physical appearance Present: well developed, well nourished, no distress - Respiratory Present: normal respiratory effort - Abdomen Present: soft - Genitourinary Urine Appearance: Present: Clear - Labs 06/18/17 06:05 06/18/17 06:05 Diabetes panel 06/18/17 Range/Units 06:05 Sodium 147 H (136-145) mEq/L Potassium 4.3 (3.5-4.5) mEq/L Chloride 117 H (98-109) mEq/L Carbon Dioxide 23 (19-29) mEq/L BUN 30 H (8-26) mg/dL Creatinine 2.00 H (0.72-1.25) mg/dL Glucose 80 (70-99) mg/dL Calcium 8.9 (8.6-10.8) mg/dL Calcium panel 06/18/17 Range/Units 06:05 Calcium 8.9 (8.6-10.8) mg/dL Phosphorus 3.6 (2.3-4.7) mg/dL Pituitary panel 06/18/17 Range/Units 06:05 Sodium 147 H (136-145) mEq/L Potassium 4.3 (3.5-4.5) mEq/L Chloride 117 H (98-109) mEq/L Carbon Dioxide 23 (19-29) mEq/L BUN 30 H (8-26) mg/dL Creatinine 2.00 H (0.72-1.25) mg/dL Glucose 80 (70-99) mg/dL Calcium 8.9 (8.6-10.8) mg/dL Adrenal panel 06/18/17 Range/Units 06:05 Sodium 147 H (136-145) mEq/L Potassium 4.3 (3.5-4.5) mEq/L Chloride 117 H (98-109) mEq/L Carbon Dioxide 23 (19-29) mEq/L BUN 30 H (8-26) mg/dL Creatinine 2.00 H (0.72-1.25) mg/dL Glucose 80 (70-99) mg/dL Calcium 8.9 (8.6-10.8) mg/dL - VTE Documentation of Mechanical Device: Intermittent pneumatic compression device Consult Discharge Plan - Plan [facility]errals: [facility] [Primary Care Provider] -
[2017-06-18] MEDS: Finasteride 5 MG TABLET PO SCH (11:04)
[2017-06-18] MEDS: Famotidine 20 MG TABLET PO SCH (11:04)
[2017-06-18] MEDS: Metoprolol XL (24 HR) Succ 25 MG TAB.ER.24H PO SCH (11:04)
[2017-06-18] MEDS: Venlafaxine XR (24 HR) 150 MG CAP.ER.24H PO SCH (11:05)
[2017-06-18 11:26] VITALS: BP 184/89
--- NOTE | 2017-06-18 12:05 | Discharge Summary ---
Date of Encounter: 06/18/17 Time of Encounter: 12:02 - Discharge Diagnosis (1) Bladder outlet obstruction Priority: Primary Status: Acute (2) Bilateral hydronephrosis Priority: Primary Status: Acute (3) BPH (benign prostatic hyperplasia) Priority: Secondary Status: Chronic Qualifiers: Lower urinary tract symptom presence: symptoms present Lower urinary tract symptom detail: urinary obstruction Qualified Code(s): N40.1 - Benign prostatic hyperplasia with lower urinary tract symptoms; N13.8 - Other obstructive and reflux uropathy (4) Hematuria Priority: Secondary Status: Acute Qualifiers: Hematuria type: unspecified type Qualified Code(s): R31.9 - Hematuria, unspecified (5) C. difficile diarrhea Priority: Secondary Status: Acute (6) Hypertension Priority: Secondary Status: Acute Qualifiers: Hypertension type: essential hypertension Qualified Code(s): I10 - Essential (primary) hypertension (7) CKD (chronic kidney disease) stage 3, GFR 30-59 ml/min Priority: Secondary Status: Chronic - Discharge Medications Prescriptions: Lactobacillus Acidophilus [Acidophilus] 1 each PO BID 7 Days metroNIDAZOLE [Flagyl] 500 mg PO TID #21 tablet Home Medications: Acetaminophen [Tylenol] 500 mg PO Q6H PRN 06/13/17 [History] Divalproex (24 HR) [Depakote ER (24 HR)] 500 mg PO HS 06/13/17 [History] Finasteride [Proscar] 5 mg PO DAILY 06/13/17 [History] Metoprolol XL (24 HR) Succ [Toprol Xl] 25 mg PO DAILY 06/13/17 [History] Ranitidine HCl [Acid Glue Maker Bone] 150 mg PO BID 06/13/17 [History] Simvastatin [Zocor] 20 mg PO HS 06/13/17 [History] Tamsulosin [Flomax] 0.4 mg PO DAILY 06/13/17 [History] Venlafaxine XR (24 HR) [Effexor Xr] 150 mg PO DAILY 06/13/17 [History] Zolpidem [Ambien] 5 mg PO HS PRN 06/13/17 [History] Lactobacillus Acidophilus [Acidophilus] 1 each PO BID 7 Days 06/18/17 [Rx] metroNIDAZOLE [Flagyl] 500 mg PO TID #21 tablet 06/18/17 [Rx] Allergies/Adverse Reactions: 3 Allergy/AdvReac Type Severity Reaction Status Date / Time No Known Allergies Allergy Verified 06/13/17 14:34 Date of admission: 06/13/17 16:08 Primary care physician: PCP [place] Consults: 06/17/17 09:35 Consult to Occupational Therapy [CONS] Routine Comment: Evaluate, develop and implement POC Reason for Consult: [place] Consult to Physical Therapy [CONS] Routine Comment: Evaluate, develop and implement POC Reason for Consult: Ambulation, d/c planning - Patient Status Disposition: Home, Self-Care Condition: Good Overall status at discharge: patient is back to baseline - Discharge Instructions [facility] With: [facility] [[facility] Care Provider[facility] - Additional Instructions: Need to f/u with PCP in one week Need to f/u with Urologist in 1 week Continue jennings catheter until you f/u with Urologist - Diet and Activity Activity: increase activity as tolerated Diet: low salt diet Hospital course: Mr. Queen is a 71 year old male with history of UTI, BPH, hypertension, depression sent from [place] for urinary retention/obstruction with ARIE. Patient has history of BPH, was on Jennings catheter. However, his Jennings catheter came out 10 days ago. Patient said he can urinate but stream is slow. Today he went to [facility] for examination. US shows urinary retention and hydronephrosis. Patient was sent to our ER to see a specialist. Urology was consulted by ER physician. A new Jennings catheter has been placed. Patient has mild hematuria after the Jennings catheter. Pt was admitted in the hospital and started him on empirical abx with Zosyn. He did develop diarrhea and his C. Diff came back as positive. Pt was started on IV abx Flagyl. His diarrhea resolved. He was seen by urologist who started him on continuous bladder irrigation, his hematuria reoslved. His Hb stayed stable around 10.7. Also noticed his Cr was in 2.08 up on admission, but we do not have any old labs to compare. Pt was given aggressive IV hydration however his Cr stayed stable around 2.00. It looks like he does have CKD-3. Need close follow up as an out pt. Will d.c him home today in stable condition. - Time Spent with Patient Total time spent providing and/or coordinating discharge services: - Constitutional Vitals: Temp Pulse Resp BP Pulse Ox 98.1 F 74 16 184/89 98 08/22/17 11:15 06/18/17 11:15 06/18/17 11:15 06/18/17 11:15 06/18/17 11:15 General appearance: Present: cooperative, A&O X 3, pleasant, no acute distress, obese, answers questions appropriately - Head Head exam: Present: atraumatic, normal inspection - Respiratory Respiratory exam: Present: decreased breath sounds, wheezes. Absent: rales, respiratory distress, rhonchi - Cardiovascular Cardiovascular exam: Present: RRR, +S1, +S2. Absent: diastolic murmur, gallop, rubs, systolic murmur - GI/Abdominal GI/Abdominal exam: Present: normal bowel sounds, soft. Absent: rebound, rigid, tenderness - Neurological Exam Neurological exam: Present: alert, oriented X3 - Psychiatric Psychiatric exam: Present: normal affect, normal mood - VTE Documentation of Mechanical Device: Intermittent pneumatic compression device
[2017-06-18] MEDS: Acetaminophen 325 MG TABLET PO PRN (16:54)
== END 2017-06-18 16:55 | disposition home or self-care (01) | DRG 666 ==
LOC: EMEROO 14:26 → 3ANU 16:08
PROVIDERS: ADMIT Family Medicine; ATTEND Internal Medicine

== ENCOUNTER 2017-07-29 07:00 | Inpatient (IN) ==
[2017-07-29] MEDS ORDERED: Levofloxacin 500 MG/100 ML 500 MG/100 ML BAG IVPB ONE (07:55)
[2017-07-29] MEDS ORDERED: Lidocaine -MPF 1% 2 ML VIAL ID ONE (07:55)
[2017-07-29] MEDS ORDERED: 0.9 % Sodium Chloride 500 ML IVC SCH (08:00)
--- NOTE | 2017-07-29 08:14 | Anesthesia Evaluation PreOp ---
Date of Encounter: 07/29/17 Time of Encounter: 08:12 - Past History Planned Operation: TURP Cardiac History: HTN, Hyperlipidemia Pulmonary History: Denies Any Significant HX PRESS CLIPPINGS CUTTER AND PASTER History: Denies Any Significant HX Other Medical History: Other (BPH) Anesthesia History: No Prior Anesthetic Complications, Past Anesthesia (denies PSH) Drug use: none Medications and Allergies Acetaminophen [Tylenol] 500 mg PO Q6H PRN 06/13/17 [History] Divalproex (24 HR) [Depakote ER (24 HR)] 500 mg PO HS 06/13/17 [History] Finasteride [Proscar] 5 mg PO DAILY 06/13/17 [History] Metoprolol XL (24 HR) Succ [Toprol Xl] 25 mg PO DAILY 06/13/17 [History] Ranitidine HCl [Acid Pin Feather Machine Operator] 150 mg PO BID 06/13/17 [History] Simvastatin [Zocor] 20 mg PO HS 06/13/17 [History] Tamsulosin [Flomax] 0.4 mg PO DAILY 06/13/17 [History] Zolpidem [Ambien] 5 mg PO HS PRN 06/13/17 [History] metroNIDAZOLE [Flagyl] 500 mg PO TID #21 tablet 06/18/17 [Rx] Venlafaxine HCl [Effexor Xr] 75 mg PO DAILY 07/29/17 [History] 3 Allergy/AdvReac Type Severity Reaction Status Date / Time No Known Allergies Allergy Verified 07/29/17 07:40 - Meds/Allergy Pre-op Review Medications Reviewed: Yes Allergies Reviewed: Yes Beta Blockers on Current Med List: Yes If Beta Blockers taken, Date/Time (Last Dose taken): today 0600 Anesthesia Results - Labs Laboratory Tests 07/24/17 07/24/17 14:49 14:49 Hgb 8.9 L Hct 28.3 L Sodium 142 Potassium 4.2 BUN 22 Creatinine 2.19 H - Imaging EKG: report reviewed (SINUS RHYTHM) Anesthesia Exam Selected Entries 07/29/17 07:38 Temperature 97.6 F Pulse Rate 59 Respiratory Rate 18 Blood Pressure 141/67 O2 Sat by Pulse Oximetry 99 Weight: 97kg NPO (# of Hours): >8 Pain Scale: 0 Pain Scale Used: Numeric (1 - 10) - HEENT Pupil (Motor): EOMI Mallampati: II Teeth: Edentulous Oral Opening: Greater than 3 - PRESS CLIPPINGS CUTTER AND PASTER LOC: Oriented PRESS CLIPPINGS CUTTER AND PASTER Motor: Normal RUE, Normal LUE, Normal RLE, Normal LLE, Normal Face PRESS CLIPPINGS CUTTER AND PASTER Sensory: Normal: RUE, LUE, RLE, LLE, Face - Cardiac Rhythm: Regular Murmur: None - Pulmonary Breath Sounds: bilateral Clear Respiratory Effort: Symmetrical - Additional Findings has jennings with leg bag, urine clear Anesthesia Assess/Plan ASA Score: 2 Modified [place] Scale for Level of Consciousness: Cooperative, oriented, and tranquil Anesthetic Plan: General Monitoring Plan: Standard Monitors Recovery Plan: PACU (discussed risks of GA, agrees to proceed)
--- NOTE | 2017-07-29 08:43 | History & Physical Report ---
Date of Encounter: 07/29/17 Time of Encounter: 08:43 24 Hour HP Update - Instructions Instructions: If the History and Physical is less than 30 days old and was completed prior to A.M. admission and or procedure and has NOT been updated on calendar day of procedure please complete this update prior to performing procedure. - Update Patient reports changes in Medical Condition: No Changes in examination, assessment, or condition: No Changes in Medication: No Preop tests/diagnostics Reviewed: Yes Surgery Remains Indicated: Yes Consent for Planned Operative Procedure(s) Verified: Yes - Pre-Operative Checklist Preoperative Checklist Indicated: Yes Prophylactic Antibiotic Ordered: Yes Home Medications Include Beta Poornima: Yes Is VTE Prophylaxis Indicated?: Yes
[2017-07-29] MEDS ORDERED: Lidocaine -MPF 2% 2 ML VIAL ONE (10:18)
[2017-07-29] MEDS ORDERED: *HR* Midazolam HCl 2 MG/2 ML VIAL ONE (10:18)
[2017-07-29] MEDS ORDERED: *HR* FentaNYL (PF) 100 MCG/2 ML VIAL ONE (10:18)
[2017-07-29] MEDS ORDERED: *HR* Propofol 200 MG/20 ML VIAL IVP ONE (10:18)
[2017-07-29] MEDS ORDERED: *HR* Labetalol 20 MG/4 ML SYRINGE IVP PRN (10:24)
[2017-07-29] MEDS ORDERED: *HR* HYDROmorphone (PF) 1 MG/ML SYRINGE IVP PRN ×2 (10:24→12:41)
[2017-07-29] MEDS ORDERED: Ondansetron 4 MG/2 ML VIAL IVP PRN ×2 (10:24→12:41)
[2017-07-29] MEDS ORDERED: *HR* Phenylephrine 10 MG/ML VIAL ONE (10:44)
[2017-07-29] MEDS ORDERED: Ondansetron 4 MG/2 ML VIAL ONE (10:47)
[2017-07-29] MEDS ORDERED: EPHEDrine 50 MG/ML VIAL ONE (11:04)
--- NOTE | 2017-07-29 11:23 | Operative Note ---
Date of procedure: 07/29/17 Pre-op diagnosis: Benign prostatic hyperplasia, urinary retention. Post-op diagnosis: same Procedure: Transurethral resection of the prostate Implants: 22 [place] 3-way catheter Complications: None Anesthesia: TICOA Surgeon: Luther Garvin Estimated blood loss (cc): 100 Specimen: prostate chips Condition: stable Disposition: PACU Procedure in Detail: Indications: Madi is a 72 year old gentleman, who has BPH and is incomplete bladder emptying. He is in urinary retention. He wished to undergo a transurethral resection of prostate. He is aware of the risks of procedure including, but not limited to, bleeding, infection, injury to other structures, need for further procedures, incomplete bladder emptying, bladder neck contracture, urethral stricture, urinary incontinence, retrograde ejaculation, erectile dysfunction, and the risk of anesthesia. He is willing to proceed. DESCRIPTION OF PROCEDURE: After informed consent was obtained, the patient was brought back to the operating room and placed in supine position. Time-out was performed. General anesthesia was then administered and a laryngeal mask airway was placed. He was then placed in lithotomy position. His genitalia were prepped and draped in usual sterile fashion. The resector sheath was then introduced using the visual obturator to the urethra. The prostate showed lateral lobe hyperplasia. There was some enlargement of the median lobe. The ureteral orifices were in the normal orthotopic position. There is no bladder tumor. There were 2+ trabeculations. I then inserted the resecting loop. The median lobe was taken down using electrocautery down to the level of the verumontanum. I then turned my attention to the left lateral lobe and this was resected away. Attention was then turned to the right lobe and this was resected away. I did perform a small amount of resection anteriorly as well. Once adequate resection was achieved, I then achieved hemostasis with electrocautery. All the TURP chips were irrigated out. He had a fairly large prostate. Resection was approximately 40 to 50 g. I then confirmed hemostasis again. Once hemostasis was adequate, I removed the scope. The verumontanum and ureteral orifices were free of injury and left intact. A 22-St Helenian three-way catheter was then placed, 60 mL was instilled in the balloon. The catheter was left on mild traction. Slow continuous bladder irrigation was started. The patient was then awakened from general anesthesia, brought to recovery room in good condition. All sponge, needle, and instrument counts were correct.
[2017-07-29] MEDS ORDERED: *HR* Promethazine 25 MG/ML VIAL IVP PRN (12:41)
[2017-07-29] MEDS ORDERED: Naloxone 0.4 MG/ML INJ IVP PRN (12:41)
[2017-07-29] MEDS ORDERED: *HR* OxyCODONE/APAP 5/325 TABLET PO PRN (12:41)
[2017-07-29] MEDS: 0.9 % Sodium Chloride 1,000 ML IVC SCH (13:29)
[2017-07-29] MEDS: Famotidine 20 MG TABLET PO SCH (20:36)
[2017-07-29] MEDS ORDERED: Divalproex (24 HR) 500 MG TABLET PO SCH (21:00)
[2017-07-30] MEDS: 0.9 % Sodium Chloride 1,000 ML IVC SCH ×3 (03:46→10:38)
[2017-07-30 06:39] LABS: Calcium 8.2 mg/dL (8.6-10.8); Potassium 4.9 mEq/L (3.5-4.5)
[2017-07-30 06:50] LABS: Basophils % 0.2 %; Eosinophils # 0.1 K/mcL (0.0-0.6); Eosinophils % 1.2 %; Hemoglobin 7.5 g/dL (12.9-16.9); Immature Granulocytes % 0.8 % (0-4); Lymphocytes # 1.7 K/mcL (0.6-4.6); Lymphocytes % 27.3 %; Mean Corpuscular HGB Conc 31.3 g/dL (31.6-35.5); Mean Corpuscular Hemoglobin 29.2 pg (28.0-33.3); Mean Corpuscular Volume 93.4 fL (83.0-100.0); Mean Platelet Volume 10.3 fL (9.4-12.4); Monocytes # 0.7 K/mcL (0.0-1.3); Monocytes % 11.7 %; Neutrophils # 3.6 K/mcL (1.6-8.9); Nucleated Red Blood Cells 0.3 /100 WBC (0); Platelet Count 143 K/mcL (140-400); Red Blood Count 2.57 M/mcL (4.19-5.50); Red Cell Distribution Width 17.1 % (11.5-14.5); Segmented Neutrophils % 58.8 %
--- NOTE | 2017-07-30 07:18 | Urology Progress Note ---
Date of Encounter: 07/30/17 Time of Encounter: 07:16 - Assessment and Plan (1) BPH NOS w ur obs/LUTS Current Visit: Yes Status: Acute Assessment and plan: 72-year-old man status post TURP. Post operative day #1. 1. I will check serial urine today. 2. I will order a bladder scan this morning. 3. If he is able to void and he is emptying adequately, we will consider discharge home later this afternoon. Progress Note Narrative: Postop day #1 status post TURP. His catheter balloon ruptured last night. The catheter came out. He has been able to void. He denies any pain. He had a urinal by his penis and there appeared to be bloody urine in it. Objective Initial Vital Signs Temp Pulse Resp BP Pulse Ox 97.6 F 59 18 141/67 99 07/29/17 07:38 07/29/17 07:38 07/29/17 07:38 07/29/17 07:38 07/29/17 07:38 - General physical appearance Present: well developed, well nourished, no distress - Respiratory Present: normal respiratory effort - Abdomen Present: soft - Genitourinary Urine Appearance: Present: Hematuria - Labs 07/30/17 05:57 07/30/17 05:57 Diabetes panel 07/30/17 Range/Units 05:57 Sodium 143 (136-145) mEq/L Potassium 4.9 H (3.5-4.5) mEq/L Chloride 116 H (98-109) mEq/L Carbon Dioxide 20 (19-29) mEq/L BUN 20 (8-26) mg/dL Creatinine 1.72 H (0.72-1.25) mg/dL Glucose 131 H (70-99) mg/dL Calcium 8.2 L (8.6-10.8) mg/dL Calcium panel 07/30/17 Range/Units 05:57 Calcium 8.2 L (8.6-10.8) mg/dL Pituitary panel 07/30/17 Range/Units 05:57 Sodium 143 (136-145) mEq/L Potassium 4.9 H (3.5-4.5) mEq/L Chloride 116 H (98-109) mEq/L Carbon Dioxide 20 (19-29) mEq/L BUN 20 (8-26) mg/dL Creatinine 1.72 H (0.72-1.25) mg/dL Glucose 131 H (70-99) mg/dL Calcium 8.2 L (8.6-10.8) mg/dL Adrenal panel 07/30/17 Range/Units 05:57 Sodium 143 (136-145) mEq/L Potassium 4.9 H (3.5-4.5) mEq/L Chloride 116 H (98-109) mEq/L Carbon Dioxide 20 (19-29) mEq/L BUN 20 (8-26) mg/dL Creatinine 1.72 H (0.72-1.25) mg/dL Glucose 131 H (70-99) mg/dL Calcium 8.2 L (8.6-10.8) mg/dL - VTE Documentation of Mechanical Device: Intermittent pneumatic compression device Consult Discharge Plan - Plan [facility]errals: [facility] [Primary Care Provider] -
[2017-07-30] MEDS: Famotidine 20 MG TABLET PO SCH (07:48)
[2017-07-30] MEDS ORDERED: Metoprolol XL (24 HR) Succ 25 MG TAB.ER.24H PO SCH (09:00)
[2017-07-30] MEDS ORDERED: Venlafaxine XR (24 HR) 75 MG CAP.ER.24H PO SCH (09:00)
[2017-07-30] MEDS ORDERED: Finasteride 5 MG TABLET PO SCH (09:00)
[2017-07-30 10:36] VITALS: BP 117/68
--- NOTE | 2017-07-30 12:38 | Discharge Summary ---
Date of Encounter: 07/30/17 Time of Encounter: 12:36 - Discharge Diagnosis (1) BPH NOS w ur obs/LUTS Priority: Primary Status: Acute (2) Anemia Priority: Secondary Status: Acute Qualifiers: Qualified Code(s): N18.3 - Chronic kidney disease, stage 3 (moderate); D63.1 - Anemia in chronic kidney disease; D63.1 - Anemia in chronic kidney disease - Discharge Medications Prescriptions: Docusate [Colace] 100 mg PO BID #60 capsule HYDROcodone/Acet 5/325 mg [[place] 5-325 mg] 1 tab PO Q6H PRN #15 tab PRN Reason: Pain Home Medications: Acetaminophen [Tylenol] 500 mg PO Q6H PRN 06/13/17 [History] Divalproex (24 HR) [Depakote ER (24 HR)] 500 mg PO HS 06/13/17 [History] Finasteride [Proscar] 5 mg PO DAILY 06/13/17 [History] Metoprolol XL (24 HR) Succ [Toprol Xl] 25 mg PO DAILY 06/13/17 [History] Ranitidine HCl [Acid Starting Gate Driver] 150 mg PO BID 06/13/17 [History] Simvastatin [Zocor] 20 mg PO HS 06/13/17 [History] Tamsulosin [Flomax] 0.4 mg PO DAILY 06/13/17 [History] Zolpidem [Ambien] 5 mg PO HS PRN 06/13/17 [History] metroNIDAZOLE [Flagyl] 500 mg PO TID #21 tablet 06/18/17 [Rx] Venlafaxine HCl [Effexor Xr] 75 mg PO DAILY 07/29/17 [History] Docusate [Colace] 100 mg PO BID #60 capsule 07/30/17 [Rx] HYDROcodone/Acet 5/325 mg [[place] 5-325 mg] 1 tab PO Q6H PRN #15 tab 07/30/17 [Rx ] Allergies/Adverse Reactions: 3 Allergy/AdvReac Type Severity Reaction Status Date / Time No Known Allergies Allergy Verified 07/29/17 07:40 Labs on day of discharge: Labs from last 24 hours 07/30/17 07/30/17 05:57 05:57 WBC 6.1 RBC 2.57 L Hgb 7.5 L Hct 24.0 L MCV 93.4 MCH 29.2 MCHC 31.3 L RDW 17.1 H Plt Count 143 MPV 10.3 Immature Gran % 0.8 Seg Neutrophils % 58.8 Lymphocytes % 27.3 Monocytes % 11.7 Eosinophils % 1.2 Basophils % 0.2 Neutrophils # 3.6 Lymphocytes # 1.7 Monocytes # 0.7 Eosinophils # 0.1 Basophils # 0.0 Nucleated RBCs/100 WBC 0.3 H Sodium 143 Potassium 4.9 H Chloride 116 H Carbon Dioxide 20 BUN 20 Creatinine 1.72 H Est GFR ( Amer) 47 L Est GFR (Non-Af Amer) 39 L BUN/Creatinine Ratio 12 Glucose 131 H Calculated Osmolality 300 Calcium 8.2 L Date of admission: 07/29/17 11:55 Primary care physician: PCP [place] Discharging clinician: Luther Garvin Anticipated date of discharge: 07/30/17 - Patient Status Disposition: Home, Self-Care Condition: Good Functional capacity at discharge: independent ambulation Overall status at discharge: patient is progressing back to baseline - Discharge Instructions Follow Up With: Luther Garvin MD [Partnered Physician] - (1 week for a voiding trial.) Additional Instructions: 1. No heavy lifting greater than 20 pounds x2 weeks. 2. No tub baths while catheter is in place. 3. May shower tomorrow. 4. He should follow up in 1 week for a voiding trial. 5. He should return for any fevers, chills, nausea, vomiting, or worsening hematuria. Please provide catheter care instructions - leg bag, night bag, leg strap and how to change the bags appropriately. - Diet and Activity Activity: increase activity as tolerated Diet: advance to your usual diet - Hospital Course Hospital course: Mr. Queen is a 72 year old male who is a history of urinary retention. He underwent a TURP on July 29 2017. He did well after surgery. On the night immediately after surgery his catheter balloon broke and the catheter came out. He was able to urinate but he had an elevated residual. I replaced 18 Divehi Perez catheter and sergio urine returned. He'll return for a voiding trial in one week. - Time Spent with Patient Total time spent providing and/or coordinating discharge services: Less than 30 minutes Exam Initial Vital Signs Temp Pulse Resp BP Pulse Ox 97.6 F 59 18 141/67 99 07/29/17 07:38 10/02/17 07:38 07/29/17 07:38 07/29/17 07:38 07/29/17 07:38 - General physical appearance Present: well developed, well nourished, no distress - Eyes Absent: icteric - ENT Present: normal nares - Neck Present: trachea midline - Respiratory Present: normal respiratory effort - VTE Documentation of Mechanical Device: Intermittent pneumatic compression device
[2017-07-31] MEDS ORDERED: levoFLOXacin 500 MG TABLET PO SCH (09:00)
== END 2017-07-30 13:33 | disposition home or self-care (01) | DRG 713 ==
LOC: SAMDAY 07:00 → 3ANU 11:55
PROVIDERS: ADMIT Urology; ATTEND Urology
PROC: UROTURP (2017-07-29 10:15)